=== PATIENT | female | born 1990 | race Caucasian/White ===

== ENCOUNTER 2021-01-31 13:41 | Emergency (ER) | payer OTHER, SELFPAY ==
--- NOTE | ~2021-01-31 | CT_ITS ---
EXAMINATION: CT SOFT TISSUE NECK WITHOUT CONTRAST CLINICAL INFORMATION: Throat tightness and difficulty swallowing COMPARISON: None TECHNIQUE: Helical imaging was performed in the axial plane with generation of coronal and sagittal reformatted images. This CT examination was performed using dose optimization techniques as appropriate, variously including the following: *Automated exposure control *Adjustment of mA and/or kV according to patient size (this includes techniques or standardized protocols for targeted exams where dose is matched to indication/reason for exam; i.e. extremities or head) *Use of iterative reconstruction technique DLP: 373 mGy-cm FINDINGS: No cervical adenopathy is identified. The parotid glands are homogeneous in attenuation. The submandibular glands are normal. No contour abnormality is seen within the oral cavity or pharyngeal mucosal space. There is symmetric prominence of the palatine tonsils. There is asymmetry of the left piriform sinus with potential mild straightening of the coastal thickening of the left aryepiglottic fold and piriform sinus mucosal but no focal lesion, fluid collection, or abnormal enhancement. The parapharyngeal fat is preserved. No retropharyngeal fluid collection is seen. The thyroid gland is normal. The superior mediastinum is unremarkable. The lung apices are clear. The mastoid air cells and visualized portions of the paranasal sinuses are well-aerated. The temporomandibular joints are normal. No periapical disease is identified. No osseous abnormalities are seen. The imaged portions of the brain parenchyma are unremarkable. CT/CT soft tissue neck wo con IMPRESSION: There is asymmetry of the left piriform sinus with potential mild straightening of the coastal thickening of the left aryepiglottic fold and piriform sinus mucosal but no focal lesion, fluid collection, or abnormal enhancement. If symptoms persist, consider further evaluation with direct endoscopic visualization.
[2021-01-31 13:47] VITALS: BP 122/79; PULSE 93; RESP 18; TEMP 36.8; O2SAT 98; BMI 27.4
--- NOTE | 2021-01-31 15:29 | ED_ITS ---
HPI - General Adult General Chief complaint: General Medical Stated complaint: sore throat Time Seen by Provider: 01/31/21 14:47 Source: patient and family Mode of arrival: ambulatory Limitations: no limitations History of Present Illness HPI narrative: 30 y/o female with no medical history presents to the ED with progressively worsening sore throat for the last 3 days. She states the pain has worsened and she has not been able to eat and she is drinking very minimally. Her and her family just got home from [facility] last night at midnight. The pain was so severe she went right to the ER at [facility] for evaluation. Per her report they said her exam was consistent with viral pharyngiitis. She had a negative COVID swab and was discharged with magic mouthwash with no improvement. She denies fever, chills, SOB, chest pain, N/V or abdominal pain. She reports bilateral ear pain, worse on the left with worsening throat and neck pain on the left side. Her voice is raspy but she is handling her own secretions ok. She does not recall the last time she urinated and thinks she is dehydrated. MD complaint: severe sore throat Onset (ago): day(s) (3) Location: face, mouth and neck Radiation: distal Severity: severe Severity scale (1-10): >10 Quality: aching, sharp and constant Pain Consistency: constant Relieving factors: none Exacerbating factors: eating Associated symptoms: headaches and other (ear pain/pressure) Treatments prior to arrival: NSAID Related Data Allergies Allergy/AdvReac Type Severity Reaction Status Date / Time No Known Allergies Allergy Verified 01/31/21 13:53 [No Known Allergies*] Review of Systems Review of Systems: Constitutional: No Fever, No Chills ENT/Mouth: + sore throat, No Rhinorrhea, + Swallowing Difficulty Eyes: No Eye Pain, No Swelling, No Redness Cardiovascular: No Chest Pain, No SOB Respiratory: No Cough, No Sputum, No Wheezing, No dyspnea Gastrointestinal: No Nausea, No Vomiting, No Diarrhea, No abdominal Pain Genitourinary: No Dysuria, No Urinary Frequency, No Hematuria Musculoskeletal: No joint pain, No Myalgias Skin: No Skin Lesions, No rash Neuro: No Weakness, No Numbness, No Dizziness, + Headache Heme/Lymph: No Bruising, + Lymphadenopathy PMFSH Past Medical History Medical History (Updated 01/31/21 @ 13:52 by Deidra Grace) Mononucleosis Social History Social History Advance Directives: No Advance Directives Information Provided: No Physical Exam Vital Signs: Vital Signs: Last Vital Signs Temp 98.3 F 01/31/21 13:47 Pulse 93 01/31/21 13:47 Resp 18 01/31/21 13:47 BP 122/79 01/31/21 13:47 Pulse Ox 98 01/31/21 13:47 Body Mass Index 27.4 Appearance: Alert. Oriented X3. Crying, appears in pain Eyes: Pupils equal, round and reactive to light. ENT: posterior orppharynx with marked generalized erythema, mild bilateral tonsillar swelling without exudate, uvula midline, voice is normal, handling secretions normally. dentition is normal. Neck: Normal inspection. Neck supple wtih tenderness along left anterior cervical chain with no palpable LAD. left lower mandibular tenderness. CVS: Normal heart rate and rhythm. Pulses normal. Respiratory: No respiratory distress. Breath sounds normal. Abdomen: Soft and non-tender. +BS x4 Skin: Skin warm and dry. Normal skin color. Normal skin turgor. No rashes. Extremities: No lower extremity edema. Neuro: Oriented X 3. No motor deficit. No sensory deficit. Steady gait Course Course Course Narrative: 30 y/o female presenting with severe sore throat x3 days. Unable to eat and very poor PO hydration. Exam is consistent with pharyngitis without retropharyngeal or peritonsillar abscess appreciated. Given her severe pain will get labs, hydrate and give IV abx and pain control. Will need PO trial prior to d/c. If unable to tolerate will proceed with CT scan for further assessment.
[2021-01-31] MEDS: 0.9 % Sodium Chloride 1,000 ML 999 ML IVCONT ×2 (16:00→17:25)
[2021-01-31] MEDS: Morphine Sulfate 4 MG/ML CARTRIDGE IVPUSH (16:01)
[2021-01-31] MEDS: Ketorolac Tromethamine 30 MG/ML VIAL IVPUSH ×2 (16:04→21:08)
[2021-01-31] MEDS: Clindamycin Phosphate/D5W 600 MG/50 ML PIGGYBACK 100 MG IV (16:07)
[2021-01-31 17:44] LABS: MANUAL DIFF FLAG NO
[2021-01-31 17:45] LABS: Influenza A PCR NEGATIVE (Negative); Influenza B PCR NEGATIVE (Negative); Resp Syncy Virus RNA Qual PCR NEGATIVE (Negative); SARS COV2 PCR INHOUSE NEGATIVE (Negative)
[2021-01-31 17:46] LABS: Basophils Percent Auto 0.2 % (0-2); Eosinophils Absolute Auto 0.2 X10*3/uL (0.0-0.4); Eosinophils Percent Auto 1.5 % (0-4); Hematocrit 39.6 % (37-47); Hemoglobin 12.6 g/dl (12.0-16.0); Imm Gran Abs Auto 0.04 X10*3/uL (0.00-0.03); Imm Gran Pct Auto 0.3 % (0.0-0.4); Lymphocytes Absolute Auto 1.3 X10*3/uL (1.2-4.9); Lymphocytes Percent Auto 9.2 % (20-40); Mean Corpuscular HGB Conc 31.8 g/dl (31.0-35.0); Mean Corpuscular Hemoglobin 29.2 pg (27.0-33.0); Mean Corpuscular Volume 91.9 fL (80-98); Mean Platelet Volume 9.4 fL (9.4-12.3); Monocytes Percent Auto 7.1 % (2-11); Neutrophils Absolute Auto 11.3 X10*3/uL (2.0-8.3); Neutrophils Percent Auto 81.7 % (45-73); Platelet Count 235 X10*3/uL (160-400); Red Blood Count 4.31 X10*6/uL (4.20-5.50); Red Cell Distribution Width 12.9 % (11.0-16.0); White Blood Count 13.8 X10*3/uL (4.8-10.8)
[2021-01-31 18:10] LABS: Anion Gap 16 (12-20); Blood Urea Nitrogen 13 mg/dL (9-16); C Reactive Protein 7.82 mg/dL (< or = 0.50); Calcium 8.3 mg/dL (8.4-10.2); Carbon Dioxide 20 mmol/L (22-29); Chloride 110 mmol/L (96-108); Creatinine Clr Calc Pharmacy 119.9; Estimated Glomerular Filt Rate > 60; Glucose Random 83 mg/dL (60-115); Potassium 4.7 mmol/L (3.3-5.1); Sodium 141 mmol/L (135-145)
[2021-01-31 19:30] VITALS: BP 140/73; PULSE 91; RESP 16; O2SAT 99
[2021-01-31 19:44] LABS: Glucose Urine UA NEG (NEG); Leukocyte Esterase Urine NEG (NEG); Nitrite Urine NEG (NEG); PH 6.5 (5.0-8.0); Specific Gravity - Urine >= 1.030 (1.005-1.025); Urine Blood NEG (NEG); Urine Ketones >=80 MG/DL (NEG); Urine Protein NEG (NEG-TRACE)
[2021-01-31 19:48] LABS: Appearance Urine CLEAR; Color Urine YELLOW
[2021-01-31 20:05] LABS: Monotest Negative (Negative)
== END 2021-01-31 21:15 | disposition home or self-care (01) ==
PROVIDERS: Physician Assistant; Emergency Provider Emergency Medicine; PCP Internal Medicine
DX: J02.9 Acute pharyngitis, unspecified (principal); Z20.822 Contact with and (suspected) exposure to COVID-19
CPT/HCPCS: 0241U; 36415; 70490; 80048; 81003; 85025; 86140; 86308; 87071; 87147; 87880; 96365; 96375; 96376; 99284; J1100; J1885; J2270

== ENCOUNTER 2024-01-30 09:32 | Emergency (ER) | payer OTHER, SELFPAY ==
--- NOTE | ~2024-01-30 | CT_ITS ---
EXAMINATION: CT LUMBAR SPINE WITHOUT CONTRAST CT SACRUM AND COCCYX WITHOUT CONTRAST CLINICAL INFORMATION: Low back pain, sacral pain COMPARISON: None available. TECHNIQUE: Multiple 1.5 and 2.0 mm axial images of the lumbar spine were obtained from lower T12 to sacrum and coccyx without IV contrast enhancement. Bone window and soft tissue window images were reconstructed. Coronal and Sagittal bone window images were also reconstructed from the axial image data. This CT examination was performed using dose optimization techniques as appropriate, variously including the following: *Automated exposure control *Adjustment of mA and/or kV according to patient size (this includes techniques or standardized protocols for targeted exams where dose is matched to indication/reason for exam; i.e. extremities or head) *Use of iterative reconstruction technique DLP; 449 mGy-cm FINDINGS: The visualized lumbar vertebrae are intact with normal alignment. T12/L1: Bony structures are intact with normal alignment. Intervertebral disc height is normal. Bilateral neuroforamina are patent. Bilateral apophyseal joints are intact with normal alignment. L-1/L-2: Bony structures are intact with normal alignment. Intervertebral disc height is normal. Bilateral neuroforamina are patent. Bilateral apophyseal joints are intact with normal alignment. L2/L3: Bony structures are intact with normal alignment. Intervertebral disc height is normal. Bilateral neuroforamina are patent. Bilateral apophyseal joints are intact with normal alignment. L3/L4: Bony structures are intact with normal alignment. Intervertebral disc height is normal. Bilateral neuroforamina are patent. Bilateral apophyseal joints are intact with normal alignment. L4/L5: Bony structures are intact with normal alignment. Intervertebral disc height is normal. Bilateral neuroforamina are patent. Bilateral apophyseal joints are intact with normal alignment. L5/S1: Bony structures are intact with normal alignment. Intervertebral disc height is normal. Bilateral neuroforamina are patent. Bilateral apophyseal joints are intact with normal alignment. The visualized sacrum and coccyx are intact with normal alignment. Inferior tip of the coccyx is not included in the [id number]. Bilateral sacroiliac joint spaces are patent. Sclerotic changes are seen along bilateral iliac border at the sacroiliac joints. Uterus is retroverted, containing T-shaped intrauterine contraceptive device. CT/CT sacrum IMPRESSION: 1. No acute fracture or dislocation of the lumbar spine. 2. No acute fracture or dislocation of the sacrum and coccyx. 3. Sclerotic changes are seen along bilateral iliac border at the sacroiliac joints, suggestive of degenerative sacroiliitis.
--- NOTE | ~2024-01-30 | CT_ITS ---
EXAMINATION: CT LUMBAR SPINE WITHOUT CONTRAST CT SACRUM AND COCCYX WITHOUT CONTRAST CLINICAL INFORMATION: Low back pain, sacral pain COMPARISON: None available. TECHNIQUE: Multiple 1.5 and 2.0 mm axial images of the lumbar spine were obtained from lower T12 to sacrum and coccyx without IV contrast enhancement. Bone window and soft tissue window images were reconstructed. Coronal and Sagittal bone window images were also reconstructed from the axial image data. This CT examination was performed using dose optimization techniques as appropriate, variously including the following: *Automated exposure control *Adjustment of mA and/or kV according to patient size (this includes techniques or standardized protocols for targeted exams where dose is matched to indication/reason for exam; i.e. extremities or head) *Use of iterative reconstruction technique DLP; 449 mGy-cm FINDINGS: The visualized lumbar vertebrae are intact with normal alignment. T12/L1: Bony structures are intact with normal alignment. Intervertebral disc height is normal. Bilateral neuroforamina are patent. Bilateral apophyseal joints are intact with normal alignment. L-1/L-2: Bony structures are intact with normal alignment. Intervertebral disc height is normal. Bilateral neuroforamina are patent. Bilateral apophyseal joints are intact with normal alignment. L2/L3: Bony structures are intact with normal alignment. Intervertebral disc height is normal. Bilateral neuroforamina are patent. Bilateral apophyseal joints are intact with normal alignment. L3/L4: Bony structures are intact with normal alignment. Intervertebral disc height is normal. Bilateral neuroforamina are patent. Bilateral apophyseal joints are intact with normal alignment. L4/L5: Bony structures are intact with normal alignment. Intervertebral disc height is normal. Bilateral neuroforamina are patent. Bilateral apophyseal joints are intact with normal alignment. L5/S1: Bony structures are intact with normal alignment. Intervertebral disc height is normal. Bilateral neuroforamina are patent. Bilateral apophyseal joints are intact with normal alignment. The visualized sacrum and coccyx are intact with normal alignment. Inferior tip of the coccyx is not included in the [id number]. Bilateral sacroiliac joint spaces are patent. Sclerotic changes are seen along bilateral iliac border at the sacroiliac joints. Uterus is retroverted, containing T-shaped intrauterine contraceptive device. CT/CT lumbar spine wo IV con IMPRESSION: 1. No acute fracture or dislocation of the lumbar spine. 2. No acute fracture or dislocation of the sacrum and coccyx. 3. Sclerotic changes are seen along bilateral iliac border at the sacroiliac joints, suggestive of degenerative sacroiliitis.
[2024-01-30 09:56] VITALS: BP 124/85; PULSE 76; RESP 18; TEMP 36.8; O2SAT 99; BMI 28.1
--- NOTE | 2024-01-30 10:34 | ED.BACK ---
HPI - Back Pain/Injury General Chief Complaint: Back Pain/Injury Stated Complaint: Lower back pain Time Seen by Provider: 01/30/24 10:11 Source: patient Mode of arrival: ambulatory Limitations: no limitations History of Present Illness HPI Narrative: 33-year-old female with no significant past medical history who presents emergency department with complaints of right low back pain radiating into her buttock for the past 3 weeks. She denies any falls, known trauma, overuse injury. She reports she was evaluated by a primary care provider on 01/22/2024 and given a Medrol Dosepak and muscle relaxers. She reports these medications have not improved her symptoms that she feels as if symptoms worsen. She states she has had difficulty with bending and walking and feels as if leg is ?locked up?. She denies any fever, chills, IVDU history urinary hesitancy, urinary fecal incontinence, saddle anesthesias, paresthesias, or weakness. Pertinent positives and negatives discussed in HPI MD elicited complaint: back pain Related Data Previous Rx's ?Medication ?Instructions ?Recorded amoxicillin 875 mg-potassium 1 tab PO Q12H 7 days #14 tabs 01/31/21 clavulanate 125 mg tablet (Augmentin) hydrocodone 5 mg-acetaminophen 325 1 tab PO BID PRN pain 3 days #10 01/31/21 mg tablet tabs hydrocodone 5 mg-acetaminophen 325 1 tab PO BID PRN pain 5 days #10 01/31/21 mg tablet tabs ondansetron HCl 4 mg tablet 4 mg PO Q6H PRN nausea and 01/31/21 (Zofran) vomiting #10 tabs prednisone 50 mg tablet 50 mg PO DAILY 4 days #4 tabs 01/31/21 amoxicillin 875 mg-potassium 1 tab PO BID 7 days #14 tabs 11/30/22 clavulanate 125 mg tablet ciprofloxacin 0.3 %-dexamethasone 4 drp otic (ears) BID 7 days #7.5 11/30/22 0.1 % ear drops,suspension mL diazepam 2 mg tablet 2 mg PO BID PRN muscle spasm #7 01/30/24 tabs lidocaine 5 % topical patch 1 patch topical DAILY #15 ea 01/30/24 naproxen 500 mg tablet 500 mg PO BID PRN pain #30 tabs 01/30/24 Allergies Allergy/AdvReac Type Severity Reaction Status Date / Time No Known Allergies Allergy Verified 01/30/24 09:59 [No Known Allergies*] Review of Systems Review of Systems: Yes all other systems are reviewed and are negative [facility] Past Medical History Medical History (Updated 01/30/24 @ 14:23 by Tricia Young NP) Mononucleosis Social History Social History Patient Tobacco Use Status: Never used Tobacco Advance Directives: No Advance Directives Information Provided: Yes Physical Exam Vital Signs: Vital Signs: Last Vital Signs Temp 98.8 F 01/30/24 11:32 Pulse 71 01/30/24 11:32 Resp 16 01/30/24 11:32 BP 110/78 01/30/24 11:32 Pulse Ox 99 01/30/24 11:32 O2 Del Method Room Air 01/30/24 11:32 BMI result Body Mass Index 28.1 Nursing notes and vital signs reviewed. GENERAL APPEARANCE: A&0 x 4, generally well appearing, no acute distress HENMT: Normal to inspection, atraumatic, face symmetrical. Normal external ears, nose, and oropharynx clear. EYE: PERRLA, EOM intact, structures appear normal NECK: Supple without lymphadenopathy. No stiffness or restricted ROM. CHEST: Normal to inspection HEART: Normal rate and regular rhythm, normal S1/S2, no M/R/G LUNGS: LS CTA, moving air well. Able to speak in complete sentences. No crackles, wheezes, or rhonchi auscultated ABDOMEN: Soft, nontender, nondistended. Normal bowel sounds noted BACK: No CVAT, no obvious deformity EXTREMITIES: Moving all extremities without difficulty. No cyanosis, clubbing, or edema. Normal capillary refill. NEUROLOGICAL: Alert and oriented, moving all 4 extremities with equal strength. CN not formally tested but appearing grossly intact. Observed to ambulate with normal gait. Cognition normal SKIN: Warm and dry without any lesions, rash, or visible sores PSYCH: Cooperative, normal affect, normal thought process Back/Spine/Pelvis: Back/spine/pelvis image: 1. TTP 2. TTP 3. TTP Medications Administered Discontinued Medications Generic Name Dose Route Start Last Admin Trade Name Freq PRN Reason Stop Dose Admin Ketorolac Tromethamine 15 mg 01/30/24 13:04 01/30/24 13:14 Ketorolac Tromethamine 15 Mg/Ml Vial IM 01/30/24 13:05 15 mg ONCE ONE Administration Lidocaine 1 patch 01/30/24 10:34 01/30/24 10:42 Lidocaine 4 % Patch Adh..Patch TRANSDERMA 01/30/24 10:35 1 patch ONCE ONE Administration Protocol Medical Decision Making Medical Decision Making [facility] Narrative: Old records reviewed for previous imaging, lab studies, ECGs, and notes. Patient was assessed the emergency department with no acute distress or toxicity noted. CT scan of lumbar spine and sacrum completed. I have independently interpreted the CT scan as negative for acute findings. Radiologist remarks on sclerotic changes along bilateral iliac borders at the sacroiliac joints, suggestive of degenerative sacroiliitis with no evidence of acute fractures or dislocation of the lumbar spine, sacrum, and coccyx. Patient's symptoms are consistent with these findings and naproxen, lidocaine patches, and volume since patient preferred pharmacy for further management of discomfort. Patient educated to follow up with her primary care provider in addition to orthopedics as needed with contact information provided. Patient is safe for discharge at this time with plan for [id number] Tylenol and/or NSAID such as ibuprofen or naproxen for fever/discomfort with dosing as per packaging. HPI, PE, diagnostics, and plan discussed with patient and family with no unanswered questions at this time. Strict return precautions given to return to the emergency department with new, worsening, or concerning emergent symptoms. Recommended to follow-up with there primary care provider in 24-48 hours for further treatment and management. Differential Diagnosis Differential Diagnoses: The differential diagnosis associated with the presentation includes But not limited to strain, sprain, fracture, dislocation, stenosis, radiculopathy, sciatica, sacroiliitis, sepsis, malignancy, cauda equina, epidural abscess Lab Data [facility] Lab Attestation statement: I reviewed the patient's lab results. Labs: Lab Results 01/30/24 Range/Units 11:34 Urine Test NEGATIVE (NEGATIVE) Independent Interpretation I performed an independent interpretation of an: CT Scan Interpretation: Showing no acute findings Discharge Plan Discharge Clinical Impression: Acute right-sided back pain, Sacroiliitis Patient Disposition: Home, Self-Care Instructions: Diazepam (By mouth), Sacroiliitis (ED), Back Pain (ED), Heat Pack Application (ED), Lower Back Exercises (ED) Additional Instructions: Your seen in the emergency department for concerns of right sided back pain. Your CT scans showed degenerative changes along bilateral iliac borders of the sacroiliac joints suggestive of sacroiliitis. This is inflammation in the joints where the spine meets the pelvis that can cause pain in the low back, hips, buttocks and upper thighs. Diazepam was sent to your preferred pharmacy to help with muscle spasms. You are safe for discharge at this time with plan for management of fever or discomfort with [id number] Tylenol and/or NSAID such as ibuprofen or naproxen with dosing as per packaging. Please return to the emergency department with new, worsening, or concerning emergent symptoms. Recommended to follow-up with your primary care provider in 24-48 hours for further treatment and management. Thank you for choosing [facility]. Prescriptions: New diazepam 2 mg tablet 2 mg PO BID PRN (Reason: muscle spasm) Qty: 7 0RF lidocaine 5 % adhesive patch,medicated 1 patch topical DAILY Qty: 15 0RF Rx Instructions: leave on most painful area for up to 12 hrs naproxen 500 mg tablet 500 mg PO BID PRN (Reason: pain) Qty: 30 0RF No Action hydrocodone-acetaminophen 5-325 mg tablet 1 tab PO BID PRN (Reason: pain) 3 Days Qty: 10 0RF amoxicillin-pot clavulanate [Augmentin] 875-125 mg tablet 1 tab PO Q12H 7 Days Qty: 14 0RF prednisone 50 mg tablet 50 mg PO DAILY 4 Days Qty: 4 0RF ondansetron HCl [Zofran] 4 mg tablet 4 mg PO Q6H PRN (Reason: nausea and vomiting) Qty: 10 0RF hydrocodone-acetaminophen 5-325 mg tablet 1 tab PO BID PRN (Reason: pain) 5 Days Qty: 10 0RF amoxicillin-pot clavulanate 875-125 mg tablet 1 tab PO BID 7 Days Qty: 14 0RF ciprofloxacin-dexamethasone 0.3-0.1 % drops,suspension 4 drp otic (ears) BID 7 Days Qty: 7.5 0RF Referrals: [facility] [Provider Group] Radha Clark MD [Primary Care Provider] - Stand Alone Forms: Work/School Release Interventions: ED Discharge Assessment Last Done: 01/30/24 14:48 Print Language: Turkish
[2024-01-30] MEDS: Lidocaine 4 % Patch ADH..PATCH 1 PATCH TRANSDERMA (10:42)
[2024-01-30 11:32] VITALS: BP 110/78; PULSE 71; RESP 16; TEMP 37.1; O2SAT 99
[2024-01-30 11:46] LABS: UPreg QC Valid YES; Urine Pregnancy NEGATIVE (NEGATIVE)
[2024-01-30] MEDS: Ketorolac Tromethamine 15 MG/ML VIAL IM (13:14)
[2024-01-30 14:48] VITALS: BP 120/84; PULSE 84; RESP 18; TEMP 36.6; O2SAT 100
== END 2024-01-30 14:49 | disposition home or self-care (01) ==
PROVIDERS: Nurse Practitioner Family; Emergency Provider Emergency Medicine; PCP Family Medicine
DX: M54.50 Low back pain, unspecified (principal); M46.1 Sacroiliitis, not elsewhere classified
CPT/HCPCS: 72132; 72192; 81025; 96372; 99283; 99284; J1885

== ENCOUNTER 2024-02-01 08:54 | Outpatient (AMB) | payer OTHER, SELFPAY ==
--- NOTE | 2024-02-01 08:55 | A.OFFVIS_ITS ---
Intake Visit Reasons: New Pt - right sided lower back pain Intake Note: Ghazal is a 33 year old female who presents to the office today for a new patient visit for right sided lower back pain that started 2 weeks ago with no known injury. She states it just happened out of no where and got worse. She states she has pain that travels down her lower back to her right leg. She states she has tried heat,ice, OTC medication and medication that was prescribed at the ER with no relief. Allergies No Known Allergies [No Known Allergies*] Allergy (Verified 02/01/24 08:55) Medication List - Last Reconciled 02/01/24 by Barbie Mejia MD diazepam 2 mg PO BID PRN lidocaine 5% 1 patch topical DAILY naproxen 500 mg PO BID PRN HPI Comments Details: Started the day before . Progressed gradually over the weeks. No inciting injuries. Was seen by PCP per reports, given Medrol Dosepak. Then had gone to ED 01/29, exam note indicated pain on right SI region; CT did not show acute changes but did show sacroiliitis signs; prescribed diazepam, lidocaine patch and naproxen. Lower back, then goes to right SI region down to back of thigh, but not lower than knee. When she sits a certain way, could have sensation/throb on calf. No numbness. No weakness. No bladder/bowel changes. Can't bend down due to pain. Even extension makes it worse. Denies other joint pains now. Had white spots on blanchard areas, was tested for immunologic disorder which must have been negative. Biopsy was inconclusive. Denies rash. Family history - maternal's mother had RA PFSH Medical History Mononucleosis Social History Patient Tobacco Use Status: Never used Tobacco Review of Systems Const All systems reviewed & are unremarkable except as noted in HPI and below Physical Exam Constitutional: Patient appears to be in no acute distress, well nourished and well developed. Patient was appropriately conversant and oriented. Good historian. MSK: No specific abnormalities found on inspection of the spine and all extremities. No pain with palpation over the lumbar area. Tender on right SI joint. Mildly tender right GT. Lumbar ROM was limited flexion extension due to pain. Difficulty getting up from chair. Bilateral hip, knee and ankle ROM WNL. No ligamentous laxity or crepitance. No increased effusion. Straight-leg raising test negative. FABERE test positive right. Ira tests show stiffness on right. Strength is 5/5 in all muscle groups tested. No increased tone noted. Neurological: Neurologic examination of the upper and lower extremities was nonfocal with intact sensation, muscle stretch reflexes and without focal motor deficits . Babinski was down going bilaterally. Clonus was negative. Gait is antalgic without loss of balance. Results Reviewed Results Reviewed: Ordering Physician: Tricia Young NP Date of Service: 01/30/24 Procedure(s): CT lumbar spine wo IV con Accession Number(s): [id number] cc: Radha Clark MD; Tricia Young NP~ EXAMINATION: CT LUMBAR SPINE WITHOUT CONTRAST CT SACRUM AND COCCYX WITHOUT CONTRAST CLINICAL INFORMATION: Low back pain, sacral pain COMPARISON: None available. TECHNIQUE: Multiple 1.5 and 2.0 mm axial images of the lumbar spine were obtained from lower T12 to sacrum and coccyx without IV contrast enhancement. Bone window and soft tissue window images were reconstructed. Coronal and Sagittal bone window images were also reconstructed from the axial image data. This CT examination was performed using dose optimization techniques as appropriate, variously including the following: *Automated exposure control *Adjustment of mA and/or kV according to patient size (this includes techniques or standardized protocols for targeted exams where dose is matched to indication/reason for exam; i.e. extremities or head) *Use of iterative reconstruction technique DLP; 449 mGy-cm FINDINGS: The visualized lumbar vertebrae are intact with normal alignment. T12/L1: Bony structures are intact with normal alignment. Intervertebral disc height is normal. Bilateral neuroforamina are patent. Bilateral apophyseal joints are intact with normal alignment. L-1/L-2: Bony structures are intact with normal alignment. Intervertebral disc height is normal. Bilateral neuroforamina are patent. Bilateral apophyseal joints are intact with normal alignment. L2/L3: Bony structures are intact with normal alignment. Intervertebral disc height is normal. Bilateral neuroforamina are patent. Bilateral apophyseal joints are intact with normal alignment. L3/L4: Bony structures are intact with normal alignment. Intervertebral disc height is normal. Bilateral neuroforamina are patent. Bilateral apophyseal joints are intact with normal alignment. L4/L5: Bony structures are intact with normal alignment. Intervertebral disc height is normal. Bilateral neuroforamina are patent. Bilateral apophyseal joints are intact with normal alignment. L5/S1: Bony structures are intact with normal alignment. Intervertebral disc height is normal. Bilateral neuroforamina are patent. Bilateral apophyseal joints are intact with normal alignment. The visualized sacrum and coccyx are intact with normal alignment. Inferior tip of the coccyx is not included in the [id number]. Bilateral sacroiliac joint spaces are patent. Sclerotic changes are seen along bilateral iliac border at the sacroiliac joints. Uterus is retroverted, containing T-shaped intrauterine contraceptive device. CT/CT lumbar spine wo IV con IMPRESSION: 1. No acute fracture or dislocation of the lumbar spine. 2. No acute fracture or dislocation of the sacrum and coccyx. 3. Sclerotic changes are seen along bilateral iliac border at the sacroiliac joints, suggestive of degenerative sacroiliitis. I reviewed records from the following: ER notes Assessment & Plan Assessment & Plan (1) Sacroiliac joint dysfunction of right side: Code(s): M53.3 - Sacrococcygeal disorders, not elsewhere classified Category: Medical (2) Sacroiliitis: Code(s): M46.1 - Sacroiliitis, not elsewhere classified Category: Medical Plan Right Si joint dysfunction per history and exam. Discussed which specific movements would exacerbate. Since she's had good course of oral antiinflammatories including Medrol without much relief, it would be reasonable to have injection done for right SI joint. I will have to refer her to Pain Management to be done under fluoroscopy. In the meantime, we will discontinue naproxen and take ibuprofen 600mg TID instead, take with full stomach. Discontinue Diazepam, and take flexeril 10mg qhs instead. Referral to PT which I believe would be her best course of action for terminal gauger relief. She denies other joint pains but has family history of RA. CT shows sacroiliitis. We will check for WILLIAM and RF. Assessment and plan discussed with patient, and patient was agreeable. All questions were answered thoroughly. Barbie Mejia MD, [place] Board Certified, [place] [employer] and Rehabilitation (ABPMR) Board Certified, [place] [employer] of Electrodiagnostic Medicine (ABEM) Orders: Orders Rheumatoid Factor Today M53.3 - Sacrococcygeal disorders, not elsewhere classified WILLIAM Reflex Titer and Pattern Today M53.3 - Sacrococcygeal disorders, not elsewhere classified PT Evaluation and Treatment Today M46.1 - Sacroiliitis, not elsewhere classified, M53.3 - Sacrococcygeal disorders, not elsewhere classified Referrals Pain Management Referral M53.3 - Sacrococcygeal disorders, not elsewhere classified Coding Level of Care Code New Pt Level 4 (09653) Diagnoses Sacroiliac joint dysfunction of right side M53.3 Sacroiliitis M46.1
== END 2024-02-01 09:28 | disposition home or self-care (01) ==
PROVIDERS: PCP Family Medicine; Visit Provider Physical Medicine & Rehabilitation
DX: M53.3 Sacrococcygeal disorders, not elsewhere classified (principal); M46.1 Sacroiliitis, not elsewhere classified
CPT/HCPCS: 99204

== ENCOUNTER 2024-02-01 08:54 | Outpatient (REF) | payer OTHER, SELFPAY ==
[2024-02-01 11:12] LABS: Rheumatoid Factor < 13.0 IU/mL (<15.0)
[2024-02-05 12:28] LABS: Anti Nuclear Antibody Pattern Nuclear, Speckled; Anti Nuclear Antibody Screen POSITIVE (NEGATIVE)
== END 2024-02-01 08:55 | disposition home or self-care (01) ==
LOC: HO.LAB 08:54
PROVIDERS: PCP Family Medicine; Visit Provider Physical Medicine & Rehabilitation
DX: M53.3 Sacrococcygeal disorders, not elsewhere classified (principal); M54.50 Low back pain, unspecified; M46.1 Sacroiliitis, not elsewhere classified
CPT/HCPCS: 36415; 86038; 86039; 86431

== ENCOUNTER 2024-04-23 08:37 | Outpatient (AMB) | payer OTHER, SELFPAY ==
--- NOTE | 2024-04-23 08:39 | A.OFFVIS_ITS ---
Vital Signs 04/23/24 08:45 Height 5 ft 2 in Weight 156 lb 1.396 oz BMI 28.5 BP 110/60 Blood Pressure Location Lt brachial Position Sitting Respiration 16 Pulse 85 Pulse Oximetry (%) 97 Oxygen Delivery Method Room Air Intake Visit Reasons: + WILLIAM/CM Intake Note: Patient presents for WILLIAM. Allergies No Known Allergies [No Known Allergies*] Allergy (Verified 04/23/24 08:42) Medication List - Last Reconciled 04/23/24 by Jaz Fermin MD No Known Home Meds HPI Comments Details: This is a 33-year-old female who presents for evaluation of a positive WILLIAM and sacroiliitis. In 01/2024 patient presented to the ED with abrupt onset of right buttock, right lower back pain that radiated to her right thigh. She had been treated with a Medrol Dosepak by another provider without relief. In the emergency room she was given Toradol with relief. The pain eventually improved on its own. Since then she would have intermittent episodes of right buttock pain, usually with certain movements. She denies any morning stiffness. She would have these episodes about once a week and they last about 1 hour. She also states that she has been having thumb pain, she has achiness of her hands she tries to make a fist. She gets intermittent swelling of her fingers, she feels that her ring is tight. She states that she was diagnosed with psoriasis about 10 years ago after the of her child. Was on the back of her scalp and it self-resolved without any specific treatment. Has not had any recurrent psoriasis. She also states that for the last 4-5 years she has been having episodes of abdominal pain and loose stools. This happens 2 to 3 times a day. No blood in the stool. Has not been evaluated by nylon hot wire cutter. Her mother has Crohn's disease. She also noted skin depigmentation of her shins. She had a skin biopsy and it was inconclusive. Her father has vitiligo she denies any history of DVT/PE. When she was in [place] 2 months ago she developed a skin rash on her chest that lasted a couple of days. She denies history suggestive of uveitis. 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 Female Reproductive History Menstrual Total pregnancies: 1 Full term: 1 Review of Systems Const Denies fever(s), Reports weight gain and Denies weight loss Eyes Reports no additional complaints Musc Reports back pain, Reports arthralgias, Reports joint swelling and Reports stiffness Skin/Breast Reports photosensitivity and Reports rash Physical Exam Vital Signs: Last Vital Signs Pulse 85 04/23/24 08:45 Resp 16 04/23/24 08:45 BP 110/60 04/23/24 08:45 Pulse Ox 97 04/23/24 08:45 Oxygen Delivery Method Room Air 04/23/24 08:45 BMI result Body Mass Index 28.5 Const General: cooperative, healthy appearing and comfortable Nutritional Appearance: overweight Orientation/consciousness: patient oriented x3 Limitations: no limitations HEENT Head: Yes normocephalic and Yes atraumatic Mouth: moist mucous membranes Resp Effort & Inspection: normal respiratory effort and able to speak in complete sentences Auscultation: clear to auscultation bilaterally Cardio Rate: regular rate Rhythm: regular rhythm Skin General skin exam: no rashes or lesions noted Neuro General: patient oriented x3 Extrem Other: No active synovitis No flexor tendon triggering No flexor tendon tenderness Normal range of motion of hands, wrists, elbows and shoulders without pain Negative rotator cuff provocative maneuvers and negative Speed's test bilaterall y Tiffany test 10-14.5 cm Normal range of motion of her neck Negative straight leg raise test bilaterally Negative Fabere test bilaterally No knee pain with full flexion-extension bilaterally Right foot bunion No ankle swelling or tenderness bilaterally Normal nailfold capillaroscopy Results Reviewed Results Reviewed: CT SACRUM AND COCCYX WITHOUT CONTRAST CLINICAL INFORMATION: Low back pain, sacral pain COMPARISON: None available. TECHNIQUE: Multiple 1.5 and 2.0 mm axial images of the lumbar spine were obtained from lower T12 to sacrum and coccyx without IV contrast enhancement. Bone window and soft tissue window images were reconstructed. Coronal and Sagittal bone window images were also reconstructed from the axial image data. This CT examination was performed using dose optimization techniques as appropriate, variously including the following: *Automated exposure control *Adjustment of mA and/or kV according to patient size (this includes techniques or standardized protocols for targeted exams where dose is matched to indication/reason for exam; i.e. extremities or head) *Use of iterative reconstruction technique DLP; 449 mGy-cm FINDINGS: The visualized lumbar vertebrae are intact with normal alignment. T12/L1: Bony structures are intact with normal alignment. Intervertebral disc height is normal. Bilateral neuroforamina are patent. Bilateral apophyseal joints are intact with normal alignment. L-1/L-2: Bony structures are intact with normal alignment. Intervertebral disc height is normal. Bilateral neuroforamina are patent. Bilateral apophyseal joints are intact with normal alignment. L2/L3: Bony structures are intact with normal alignment. Intervertebral disc height is normal. Bilateral neuroforamina are patent. Bilateral apophyseal joints are intact with normal alignment. L3/L4: Bony structures are intact with normal alignment. Intervertebral disc height is normal. Bilateral neuroforamina are patent. Bilateral apophyseal joints are intact with normal alignment. L4/L5: Bony structures are intact with normal alignment. Intervertebral disc height is normal. Bilateral neuroforamina are patent. Bilateral apophyseal joints are intact with normal alignment. L5/S1: Bony structures are intact with normal alignment. Intervertebral disc height is normal. Bilateral neuroforamina are patent. Bilateral apophyseal joints are intact with normal alignment. The visualized sacrum and coccyx are intact with normal alignment. Inferior tip of the coccyx is not included in the [id number]. Bilateral sacroiliac joint spaces are patent. Sclerotic changes are seen along bilateral iliac border at the sacroiliac joints. Uterus is retroverted, containing T-shaped intrauterine contraceptive device. CT/CT lumbar spine wo IV con IMPRESSION: 1. No acute fracture or dislocation of the lumbar spine. 2. No acute fracture or dislocation of the sacrum and coccyx. 3. Sclerotic changes are seen along bilateral iliac border at the sacroiliac joints, suggestive of degenerative sacroiliitis. Assessment & Plan Assessment & Plan (1) WILLIAM positive: Code(s): R76.8 - Other specified abnormal immunological findings in serum Category: Medical Plan: This is a 33-year-old female who presents for evaluation of a positive WILLIAM as well as right lower back and buttock pain, with CT scan showing degenerative sacroiliitis. Also symptoms of abdominal pain with loose stools for the last 4 years. Her mother has Crohn's disease and her father has vitiligo. She had psoriasis many years ago. I will order comprehensive serology to screen for underlying autoimmune rheumatic disease Given ongoing right buttock pain and inconclusive CT scan I would like to order bilateral SI joint MRI to evaluate for inflammatory sacroiliitis. MRI L-spine order to evaluate for signs suggestive of inflammatory back pain. Follow-up in 6 weeks or after imaging is complete Plan I spent 48 minutes reviewing patient's chart, evaluating patient, ordering diagnostic workup, counseling patient and documenting in the chart Orders: Orders Complete Blood Count Auto Diff Today M32.9 - Systemic lupus erythematosus, unspecified C Reactive Protein Today M32.9 - Systemic lupus erythematosus, unspecified Protein Electrophoresis, Serum Today M32.9 - Systemic lupus erythematosus, unspecified Complement C4 Today M32.9 - Systemic lupus erythematosus, unspecified Endomysial IgA rflx Titer Today K90.0 - Celiac disease Immunoglobulin A Today K90.0 - Celiac disease Thyroglobulin Antibodies Today E07.9 - Disorder of thyroid, unspecified MR sacroiliac joint YOHAN wo con Today M46.1 - Sacroiliitis, not elsewhere classified MR lumbar spine wo con Today M46.1 - Sacroiliitis, not elsewhere classified HLA B51 Behcet's Disease Today M35.2 - Behcet's disease Comprehensive Met. Panel Today M32.9 - Systemic lupus erythematosus, unspecifie d Angiotensin Converting Enzyme Today D86.9 - Sarcoidosis, unspecified Erythrocyte Sedimentation Rate Today M32.9 - Systemic lupus erythematosus, unspecified Hepatitis A,B,C Profile Today Z11.59 - Encounter for screening for other viral diseases Immunofixation Pnl, Serum Today M32.9 - Systemic lupus erythematosus, unspecified T Spot TB Today Z11.7 - Encounter for testing for latent tuberculosis infection Anti Extractable Nuclear Ag Today M32.9 - Systemic lupus erythematosus, unspecified Anti DNA DS Antibody Today M32.9 - Systemic lupus erythematosus, unspecified Complement C3 Today M32.9 - Systemic lupus erythematosus, unspecified DNA Double Stranded-Crithidia Today M32.9 - Systemic lupus erythematosus, unspecified Protein Creatinine Ratio, Ur Today M32.9 - Systemic lupus erythematosus, unspecified Sjogren's Antibodies Today M32.9 - Systemic lupus erythematosus, unspecified UA w Microscopic Today M32.9 - Systemic lupus erythematosus, unspecified HLA B27 Today M45.9 - Ankylosing spondylitis of unspecified sites in spine Rheumatoid Factor Today M25.50 - Pain in unspecified joint Cyclic Citrullinated Peptide Today M25.50 - Pain in unspecified joint Transglutaminase Ab IgG Today K90.0 - Celiac disease Thyroid Peroxidase Antibodies Today E07.9 - Disorder of thyroid, unspecified TSH reflex Free T4 Today E07.9 - Disorder of thyroid, unspecified Prom[facility] IBD SGI Today K52.9 - Noninfective gastroenteritis and colitis, unspecified Coding Level of Care Code New Pt Level 4 (80177) Diagnoses WILLIAM positive R76.8
[2024-04-23 08:45] VITALS: BP 110/60; PULSE 85; RESP 16; O2SAT 97; BMI 28.5
== END 2024-04-23 09:11 | disposition home or self-care (01) ==
PROVIDERS: PCP Family Medicine; Visit Provider Student in an Organized Health Care Education/Training Program
DX: R76.8 Other specified abnormal immunological findings in serum (principal)
CPT/HCPCS: 99204

== ENCOUNTER → 2024-04-23 08:37 | Outpatient (BNVA) | payer OTHER, SELFPAY | PROVIDERS: PCP Family Medicine; Visit Provider Student in an Organized Health Care Education/Training Program ==

== ENCOUNTER 2024-04-23 09:34 | Outpatient (REF) | payer OTHER, SELFPAY ==
[2024-04-23 10:18] LABS: MANUAL DIFF FLAG NO
[2024-04-23 10:21] LABS: Appearance Urine Clear; Color Urine Yellow; Glucose Urine UA Negative (Negative); Leukocyte Esterase Urine Negative (Negative); Nitrite Urine Negative (Negative); PH 8.5 (5.0-9.0); Specific Gravity - Urine 1.015 (1.005-1.025); Urine Blood Negative (Negative); Urine Ketones Negative (Negative); Urine Protein Negative (Neg-Trace)
[2024-04-23 10:25] LABS: Basophils Percent Auto 0.4 % (0-2); Eosinophils Absolute Auto 0.2 X10*3/uL (0.0-0.4); Hematocrit 42.4 % (37.0-47.0); Hemoglobin 13.8 g/dl (12.0-16.0); Imm Gran Abs Auto 0.02 X10*3/uL (0.00-0.03); Imm Gran Pct Auto 0.3 % (0.0-0.4); Lymphocytes Absolute Auto 2.1 X10*3/uL (1.2-4.9); Lymphocytes Percent Auto 27.3 % (20-40); Mean Corpuscular HGB Conc 32.5 g/dl (31.0-35.0); Mean Corpuscular Hemoglobin 29.2 pg (27.0-33.0); Mean Corpuscular Volume 89.6 fL (80.0-98.0); Mean Platelet Volume 9.5 fL (9.4-12.3); Monocytes Absolute Auto 0.5 X10*3/uL (0.1-1.2); Monocytes Percent Auto 6.5 % (2-11); Neutrophils Percent Auto 63.5 % (45-73); Platelet Count 332 X10*3/uL (160-400); Red Blood Count 4.73 X10*6/uL (4.20-5.50); White Blood Count 7.8 X10*3/uL (4.8-10.8)
[2024-04-23 10:28] LABS: Bacteria Urine None Seen (None Seen); Hyaline Casts Urine 0-2 /LPF (0-2); RBC Urine 0-2 /HPF (0-2); Squamous Epithelial Cell Urine 0-2 /HPF (0-2); WBC Urine 0-5 /HPF (0-5)
[2024-04-23 11:00] LABS: Alanine Aminotransferase 20 U/L (0-31); Albumin Level 4.6 g/dL (3.5-5.0); Alkaline Phosphatase 70 U/L (39-117); Anion Gap 13 (12-20); Aspartate Amino Transferase 16 U/L (5-31); Bilirubin Total 0.6 mg/dL (0.0-1.0); Blood Urea Nitrogen 12 mg/dL (9-16); C Reactive Protein 0.12 mg/dL (< or = 0.50); Calcium 9.8 mg/dL (8.4-10.2); Carbon Dioxide 27 mmol/L (22-29); Chloride 104 mmol/L (96-108); Estimated Glomerular Filt Rate > 60; Glucose Random 88 mg/dL (60-115); Potassium 3.7 mmol/L (3.3-5.1); Sodium 140 mmol/L (135-145); Total Protein 7.6 g/dL (6.5-8.0)
[2024-04-23 11:03] LABS: Erythrocyte Sedimentation Rate 11 MM/HR (0-20)
[2024-04-23 11:09] LABS: Creatinine Urine 66.02 mg/dL; Total Protein Urine Random < 7 mg/dL (<12)
[2024-04-23 11:15] LABS: Rheumatoid Factor < 13.0 IU/mL (<15.0)
[2024-04-23 11:17] LABS: TSH reflex Free T4 1.68 uIU/mL (0.32-4.0)
[2024-04-23 11:29] LABS: HBS Num1 6.16 mIU/mL (0-7.99); HBc Num1 0.11 S/CO (0.00-0.79); HBsAGNum1 1.21 S/CO (0.00-0.99); Hepatitis A Antibody IgM 0.15 Index (0-0.79); Hepatitis B Core Antibody Nonreactive (Nonreactive); ~HepC Num1 0.07 S/CO (0.00-0.79); ~Hepatitis A Antibody IgM Nonreactive (Nonreactive); ~Hepatitis B Surface Antibody NONREACTIVE (Nonreactive); ~Hepatitis C Antibody Nonreactive (Nonreactive)
[2024-04-23 14:38] LABS: HBsAGNum2 Reactive; HBsAGNum3 Reactive; Hepatitis B Surface Antigen Retest CNFM (Negative)
[2024-04-24 23:28] LABS: Thyroglobulin Antibodies <1 IU/mL (< or = 1); Thyroid Peroxidase Antibodies <1 IU/mL (<9)
[2024-04-25 10:59] LABS: Complement C3 156 mg/dL (83-193)
[2024-04-25 13:58] LABS: Transglutaminase Ab IgG <1.0 U/mL
[2024-04-25 14:43] LABS: Cyclic Citrullinated Peptide <16 UNITS
[2024-04-25 20:04] LABS: Anti DNA DS Antibody <1 IU/mL; Antibody to SS-A Antigen <1.0 NEG AI (<1.0 NEG); Antibody to SS-B Antigen <1.0 NEG AI (<1.0 NEG); SM/Ribonucleoprotein Ab <1.0 NEG AI (<1.0 NEG); Smith Protein <1.0 NEG AI (<1.0 NEG)
[2024-04-25 20:38] LABS: Prot Elec - Albumin 4.4 g/dL (3.8-4.8); Prot Elec - Alpha1 0.3 g/dL (0.2-0.3); Prot Elec - Alpha2 0.7 g/dL (0.5-0.9); Prot Elec - Beta 1 0.5 g/dL (0.4-0.6); Prot Elec - Beta 2 0.5 g/dL (0.2-0.5); Prot Elec - Gamma 0.9 g/dL (0.8-1.7); Prot Elec - Total Protein 7.2 g/dL (6.1-8.1)
[2024-04-25 21:43] LABS: TS Negative Control Passed; TS Panel A 0; TS Panel B 0; TS Positive Control Passed; TSpotTB Negative (Negative)
[2024-04-26 10:33] LABS: IgA 397 mg/dL (47-310); IgG 1005 mg/dL (600-1640); IgM 181 mg/dL (50-300)
[2024-04-26 23:59] LABS: HLA B27 Negative (Negative)
[2024-04-30 18:38] LABS: HBsAG NON-REACTIVE
[2024-05-01 13:07] LABS: Endomysial IgA Antibody Negative (Negative)
[2024-05-01 15:23] LABS: DNAds, Crithidia Antibody Negative (Negative)
[2024-05-09 21:59] LABS: Angiotensin Converting Enzyme 25 U/L (9-67)
== END 2024-04-23 09:35 | disposition home or self-care (01) ==
LOC: HO.10HDL 09:34
PROVIDERS: Visit Provider Student in an Organized Health Care Education/Training Program
DX: M32.9 Systemic lupus erythematosus, unspecified (principal); Z11.59 Encounter for screening for other viral diseases; M45.9 Ankylosing spondylitis of unspecified sites in spine; E07.9 Disorder of thyroid, unspecified; D86.9 Sarcoidosis, unspecified; Z11.7 Encounter for testing for latent tuberculosis infection; K90.0 Celiac disease; M25.50 Pain in unspecified joint; K52.9 Noninfective gastroenteritis and colitis, unspecified
CPT/HCPCS: 36415; 80053; 81001; 81405; 81479; 82164; 82397; 82570; 82784; 83520; 84156; 84165; 84443; 85025; 85652; 86140; 86160; 86200; 86225; 86231; 86235; 86255; 86334; 86364; 86376; 86431; 86481; 86704; 86706; 86709; 86800; 86803; 86812; 87340; 88346; 88350

== ENCOUNTER 2024-07-01 09:37 | Outpatient (REF) | payer OTHER, SELFPAY ==
--- NOTE | ~2024-07-01 | MR_ITS ---
EXAMINATION: MR LUMBAR SPINE WITHOUT CONTRAST CLINICAL INFORMATION: Low back pain. COMPARISON: No priors. Correlated to CT lumbar spine dated January 30, 2024. TECHNIQUE: MRI of the lumbar spine was obtained using routine sequences without contrast. FINDINGS: MRI has been submitted for interpretation on August 05, 2024. Last rib-bearing vertebra labeled T12. No bone marrow STIR signal abnormality. Disc desiccation, L5-S1. Grade 1 retrolisthesis, L5-S1 and to a lesser extent L4-5. Conus medullaris ends at superior endplate L1 with normal signal. T11-12: No compression upon elements. T12-L1: No compression upon elements. No disc herniation. L1-2: No disc herniation. No compression upon neural elements. L2-3: No disc herniation. No compression upon neural elements. L3-4: Broad-based disc bulging. No compression upon neural elements. L4-5: Broad-based disc bulging. Facet joint hypertrophy. Hypertrophy of the ligamentum flavum. Left neuroforamina narrowing. No compression upon neural elements. L5-S1: Right subarticular and central disc herniation with cephalad migration beneath the posterior longitudinal ligament, abutting the right S1 nerve root on its lateral recess. No prevertebral compartment hematoma, mass or fluid collection. MR/MR lumbar spine wo con IMPRESSION: Central and right subarticular extruded disc, right L5-S1 abutting likely encroaching right S1 nerve root. Electronically signed by: Corby Ng MD 08/05/2024 10:22 AM EDT
--- NOTE | ~2024-07-01 | MR_ITS ---
Examination: MRI sacroiliac joint without IV contrast. CLINICAL INFORMATION: Low back pain, sacral pain. COMPARISON: No priors. Correlated to CT sacrum dated January 30, 2024. TECHNIQUE: Multiplanar, multisequence MRI sacroiliac joints without IV contrast. FINDINGS: No bone marrow STIR signal abnormality. Bone marrow inhomogeneity. No presacral soft tissue mass or fluid collections. Right subarticular disc herniation L5-S1 encroaching right S1 nerve root. Uterus is in retroversion flexion position. Small amount of free fluid in the cul-de-sac. MR/MR sacroiliac joint YOHAN wo con IMPRESSION: Right subarticular disc herniation L5-S1 encroaching right S1 root. No acute fracture Electronically signed by: Corby Ng MD 08/05/2024 10:29 AM EDT
== END 2024-07-01 09:38 | disposition home or self-care (01) ==
LOC: HO.MRI 09:37
PROVIDERS: PCP Family Medicine; Visit Provider Student in an Organized Health Care Education/Training Program
DX: M46.1 Sacroiliitis, not elsewhere classified (principal)
CPT/HCPCS: 72148; 72195

== ENCOUNTER → 2024-07-01 09:37 | Outpatient (BNV) | payer OTHER, SELFPAY | PROVIDERS: PCP Family Medicine; Visit Provider Radiology Diagnostic Radiology | DX: M54.50 Low back pain, unspecified (principal) | CPT/HCPCS: 72148; 72195 ==

== ENCOUNTER 2024-08-19 12:49 | Outpatient (AMB) | payer OTHER, SELFPAY ==
--- NOTE | 2024-08-19 13:01 | A.SPINEOV_ITS ---
Intake Visit Reasons: disc displacement Intake Note: Ms. Tamez is here today c/o low back pain. [employer] Worker Required: No Allergies No Known Allergies [No Known Allergies*] Allergy (Verified 08/19/24 13:01) Assessment & Plan Assessment & Plan (1) Herniation of intervertebral disc between L5 and S1: Code(s): M51.27 - Other intervertebral disc displacement, lumbosacral region Category: Medical Plan Dear DR Fermin, Thank you for referring Mrs Tamez to our office today. She is a very nice 33-year-old female presents to the office today for evaluation of symptoms that she had earlier this year in January. She awoke 1 day with a severe shooting pain going down the back of her leg. It lasted a few weeks. She ended up in the emergency room. She was on a number of different medications like anti- inflammatories and muscle relaxers. Ultimately it just went away 1 day and she has been pain-free since that time. She ultimately did end up undergoing some imaging and came in her today review that. PMH: Otherwise healthy Social hx: Does not smoke, drink use any recreational drugs Medications: None Allergies: None Physical exam: Awake alert oriented strength, reflexes and gait are normal Imaging review: She is a lumbar MRI showing what looks like some mild degeneration of L5-S1, there is some asymmetric to the right bulging of this disc. No nerve compression. She has a CT of her pelvis showing some evidence of early sacroiliitis. Impression: 33-year-old female who had what sounds like a herniated disc earlier this year, probably the L5-S1 where we see some early degeneration. As is typical with 90+% of disc herniations, it resolved on its own with some gentle conservative treatment. She has been pain-free since January. I showed the patient her MRI, we talked about the fact that it is normal for disc herniations to resolve themselves and that if it happens again she should pursue the same course of conservative treatment. She has no specific restrictions. She does not require any surgery. Her pelvic CT did show some sacroiliitis, but her symptoms do not seem consistent with that. That is more of a chronic low back pain situation which she does not have. I would be happy to see her back down the road if something changes. Thank you for allowing us to care for your patient. The total time spent with this visit with this patient was 45 minutes reviewing history, physical exam, lumbar imaging review, and implementation of treatment plan or further diagnostic testing Roshan Rojas MD,PhD [facility] Coding Level of Care Code New Pt Level 4 (10511) Diagnoses Herniation of intervertebral disc between L5 and S1 M51.27
== END 2024-08-19 13:25 | disposition home or self-care (01) ==
PROVIDERS: PCP Family Medicine; Referring Provider Student in an Organized Health Care Education/Training Program; Visit Provider Physician Assistant
DX: M51.27 Other intervertebral disc displacement, lumbosacral region (principal)
CPT/HCPCS: 99204

== ENCOUNTER → 2024-08-19 12:49 | Outpatient (BNVA) | payer OTHER, SELFPAY | PROVIDERS: PCP Family Medicine; Referring Provider Student in an Organized Health Care Education/Training Program; Visit Provider Physician Assistant ==

== ENCOUNTER 2025-03-27 15:13 | Emergency (ER) | payer OTHER, SELFPAY ==
[2025-03-27 15:18] VITALS: BP 127/43; PULSE 65; RESP 18; TEMP 36.6; O2SAT 97; BMI 28.3
--- NOTE | 2025-03-27 15:18 | ED.GENADULT ---
HPI - General Adult General Chief complaint: Headache Stated complaint: headache nausea, swollen hands & feet Time Seen by Provider: 03/27/25 20:49 Source: patient Mode of arrival: ambulatory Limitations: no limitations History of Present Illness ED Provider: HPI narrative: Patient no significant past medical history noticed right-sided headache for last 3 days with nausea headache and dull aching partially relieved by Tylenol or Motrin no past medical history of migraines Related Data Previous Rx's ?Medication ?Instructions ?Recorded rmqxulfyuq-kptszokgqqgub-[id number] 1 tab PO Q6H PRN haeadace #20 tabs 03/27/25 50 mg-325 mg-40 mg tablet Allergies Allergy/AdvReac Type Severity Reaction Status Date / Time No Known Allergies (No Known Allergy Verified 03/27/25 15:20 Allergies*) Review of Systems Review of Systems: Yes all other systems are reviewed and are negative [facility] Past Medical History Medical History Psoriasis Mononucleosis Family History Family History Mother Crohn's disease Father Vitiligo Social History Social History Household Members: Family Housing: House Alcohol intake: current Alcohol intake frequency: a few times a month Comment: Occasionall Patient Tobacco Use Status: Never used Tobacco Advance Directives: No Advance Directives Information Provided: Yes Do you have a plan to hurt others: No Plan Current occupational status: employed 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 Oriented X3. No acute distress. Eyes: PERRLA, No Nystagmus ENT: Pharynx normal. Oral Mucosa moist temporal artery nontender Neck: Normal inspection. Neck supple. CVS: Normal heart rate and rhythm. Pulses normal. Respiratory: No respiratory distress. Equal air entry bilateral, no wheezing/rales/rhonchi Abdomen: Soft and nontender. Bowel sounds are present, no mass palpable, no CVA tenderness Skin: Skin warm and dry. Normal skin color. Normal skin turgor. Extremities: No lower extremity edema. No calf tenderness Neuro: Oriented X 3. No motor deficit. No sensory deficit.No cerebellar signs , cranial nerves II-XII intact Course Course Course Narrative: This is a Rapid Medical Examination (RME) performed by Lan Schneider PA-C in triage. Full HPI, ROS, assessment and treatment plan per primary provider in the Main ED. Hx: 34 yo F here w/ headache + nausea without vomiting x4 days. headache localized behind b/l eyes. trialed motrin without improvement. on BC, does not get menstrual period. also reports swelling to b/l hands/ feet. PE/vitals: well appearing. Plan: labs, viral swabs, UA Medications Administered Discontinued Medications Generic Name Dose Route Start Last Admin Trade Name Freq PRN Reason Stop Dose Admin Acetaminophen/Butalbital/Caffeine 1 tab 03/27/25 22:27 03/27/25 22:46 Butalb/Acetamin/Caff 50/325/40 Tablet PO 03/27/25 22:28 1 tab ONCE ONE Administration Ketorolac Tromethamine 60 mg 03/27/25 22:27 03/27/25 22:40 Ketorolac Tromethamine 60 Mg/2 Ml Vial IM 03/27/25 22:28 60 mg ONCE ONE Administration Ondansetron HCl 4 mg 03/27/25 20:55 03/27/25 21:50 Ondansetron Odt 4 Mg Tab.Rapdis TRANSLINGU 03/27/25 20:56 4 mg ONCE ONE Administration Sumatriptan Succinate 6 mg 03/27/25 20:55 03/27/25 21:51 Sumatriptan Succinate 6 Mg/0.5 Ml Vial SUBCUT 03/27/25 20:56 6 mg ONCE ONE Administration Medical Decision Making Medical Decision Making [facility] Narrative: Patient with headache likely migraine was given Imitrex she did not like the response responded to Fioricet and Toradol will discharge patient home on Fioricet Lab Data [facility] Lab Attestation statement: I reviewed the patient's lab results. 03/27/25 16:17 03/27/25 16:19 Labs: Lab Results 03/27/25 03/27/25 03/27/25 Range/Units 16:13 16:17 16:19 WBC 10.0 (4.8-10.8) X10*3/uL RBC 4.66 (4.20-5.50) X10*6/uL Hgb 13.4 (12.0-16.0) g/dl Hct 41.3 (37.0-47.0) % MCV 88.6 (80.0-98.0) fL MCH 28.8 (27.0-33.0) pg MCHC 32.4 (31.0-35.0) g/dl RDW 13.0 (11.0-16.0) % Plt Count 329 (160-400) X10*3/uL MPV 9.0 L (9.4-12.3) fL Immature Gran % (Auto) 0.2 (0.0-0.4) % Neut % (Auto) 64.3 (45-73) % Lymph % (Auto) 26.0 (20-40) % Grady % (Auto) 7.0 (2-11) % Eos % (Auto) 2.1 (0-4) % Baso % (Auto) 0.4 (0-2) % Lymph # (Auto) 2.6 (1.2-4.9) X10*3/uL Grady # (Auto) 0.7 (0.1-1.2) X10*3/uL Eos # (Auto) 0.2 (0.0-0.4) X10*3/uL Baso # (Auto) 0.0 (0.0-0.2) X10*3/uL Abs Immat Gran (auto) 0.02 (0.00-0.03) X10*3/uL Absolute Neuts (auto) 6.4 (2.0-8.3) x10*3/uL Absolute Nucleated RBC 0.000 (0.0-0.012) X10*3/uL Nucleated RBC % (auto) 0.0 (0.0-0.2) /100WBC Sodium 141 (135-145) mmol/L Potassium 4.3 (3.3-5.1) mmol/L Chloride 105 (96-108) mmol/L Carbon Dioxide 28 (22-29) mmol/L Anion Gap 12 (12-20) BUN 13 (9-16) mg/dL Creatinine 0.69 (0.5-1.4) mg/dL Estim Creat Clear Calc 105.5 Estimated GFR > 60 Random Glucose 100 (60-115) mg/dL Calcium 9.8 (8.4-10.2) mg/dL Magnesium 2.0 (1.6-2.6) mg/dL Total Bilirubin 0.3 (0.0-1.0) mg/dL AST 21 (5-31) U/L ALT 27 (0-31) U/L Alkaline Phosphatase 68 (39-117) U/L Total Protein 7.4 (6.5-8.0) g/dL Albumin 4.8 (3.5-5.0) g/dL Lipase 26 (8-78) U/L Beta HCG, Quant < 2 mIU/mL Urine Color Urine Appearance Urine pH (5.0-9.0) Ur Specific [place] (1.005-1.025) Urine Protein (Neg-Trace) mg/dL Urine Glucose (UA) (Negative) mg/dL Urine Ketones (Negative) mg/dL Urine Blood (Negative) Urine Nitrite (Negative) Ur Leukocyte Esterase (Negative) Urine Test (NEGATIVE) Influenza Type A (PCR) NEGATIVE (Negative) Influenza Type B (PCR) NEGATIVE (Negative) RSV RNA Qual (PCR) NEGATIVE (Negative) SARS-CoV-2 RNA (RT-PCR) NEGATIVE (Negative) 03/27/25 Range/Units 20:03 WBC (4.8-10.8) X10*3/uL RBC (4.20-5.50) X10*6/uL Hgb (12.0-16.0) g/dl Hct (37.0-47.0) % MCV (80.0-98.0) fL MCH (27.0-33.0) pg MCHC (31.0-35.0) g/dl RDW (11.0-16.0) % Plt Count (160-400) X10*3/uL MPV (9.4-12.3) fL Immature Gran % (Auto) (0.0-0.4) % Neut % (Auto) (45-73) % Lymph % (Auto) (20-40) % Grady % (Auto) (2-11) % Eos % (Auto) (0-4) % Baso % (Auto) (0-2) % Lymph # (Auto) (1.2-4.9) X10*3/uL Grady # (Auto) (0.1-1.2) X10*3/uL Eos # (Auto) (0.0-0.4) X10*3/uL Baso # (Auto) (0.0-0.2) X10*3/uL Abs Immat Gran (auto) (0.00-0.03) X10*3/uL Absolute Neuts (auto) (2.0-8.3) x10*3/uL Absolute Nucleated RBC (0.0-0.012) X10*3/uL Nucleated RBC % (auto) (0.0-0.2) /100WBC Sodium (135-145) mmol/L Potassium (3.3-5.1) mmol/L Chloride (96-108) mmol/L Carbon Dioxide (22-29) mmol/L Anion Gap (12-20) BUN (9-16) mg/dL Creatinine (0.5-1.4) mg/dL Estim Creat Clear Calc Estimated GFR Random Glucose (60-115) mg/dL Calcium (8.4-10.2) mg/dL Magnesium (1.6-2.6) mg/dL Total Bilirubin (0.0-1.0) mg/dL AST (5-31) U/L ALT (0-31) U/L Alkaline Phosphatase (39-117) U/L Total Protein (6.5-8.0) g/dL Albumin (3.5-5.0) g/dL Lipase (8-78) U/L Beta HCG, Quant mIU/mL Urine Color Yellow Urine Appearance Clear Urine pH 5.5 (5.0-9.0) Ur Specific [place] 1.025 (1.005-1.025) Urine Protein Negative (Neg-Trace) mg/dL Urine Glucose (UA) Negative (Negative) mg/dL Urine Ketones Trace (Negative) mg/dL Urine Blood Negative (Negative) Urine Nitrite Negative (Negative) Ur Leukocyte Esterase Negative (Negative) Urine Test NEGATIVE (NEGATIVE) Influenza Type A (PCR) (Negative) Influenza Type B (PCR) (Negative) RSV RNA Qual (PCR) (Negative) SARS-CoV-2 RNA (RT-PCR) (Negative) Discharge Plan Discharge Clinical Impression: Migraine Patient Disposition: Home, Self-Care Instructions: Migraine Headache (ED) Additional Instructions: Likely your headache is from complex migraine Fioricet 1 tablet every 8 hours as needed for headaches Drink plenty of fluids as advised Follow with the PCP if not better Prescriptions: New mzakquvvjb-svrrrptqiyluc-zamm 50-325-40 mg tablet 1 tab PO Q6H PRN (Reason: haeadace) Qty: 20 0RF Stand Alone Forms: Work/School Release Interventions: ED Discharge Assessment Last Done: 03/27/25 23:28 Discharge Date/Time: 03/27/25 23:30 Print Language: Azeri
[2025-03-27 16:22] LABS: MANUAL DIFF FLAG NO
[2025-03-27 16:23] LABS: Basophils Percent Auto 0.4 % (0-2); Eosinophils Absolute Auto 0.2 X10*3/uL (0.0-0.4); Eosinophils Percent Auto 2.1 % (0-4); Hematocrit 41.3 % (37.0-47.0); Hemoglobin 13.4 g/dl (12.0-16.0); Imm Gran Abs Auto 0.02 X10*3/uL (0.00-0.03); Imm Gran Pct Auto 0.2 % (0.0-0.4); Lymphocytes Absolute Auto 2.6 X10*3/uL (1.2-4.9); Mean Corpuscular HGB Conc 32.4 g/dl (31.0-35.0); Mean Corpuscular Hemoglobin 28.8 pg (27.0-33.0); Mean Corpuscular Volume 88.6 fL (80.0-98.0); Monocytes Absolute Auto 0.7 X10*3/uL (0.1-1.2); Neutrophils Absolute Auto 6.4 x10*3/uL (2.0-8.3); Neutrophils Percent Auto 64.3 % (45-73); Platelet Count 329 X10*3/uL (160-400); Red Blood Count 4.66 X10*6/uL (4.20-5.50)
[2025-03-27 16:39] LABS: Alanine Aminotransferase 27 U/L (0-31); Albumin Level 4.8 g/dL (3.5-5.0); Alkaline Phosphatase 68 U/L (39-117); Anion Gap 12 (12-20); Aspartate Amino Transferase 21 U/L (5-31); Bilirubin Total 0.3 mg/dL (0.0-1.0); Blood Urea Nitrogen 13 mg/dL (9-16); Calcium 9.8 mg/dL (8.4-10.2); Carbon Dioxide 28 mmol/L (22-29); Chloride 105 mmol/L (96-108); Creatinine Clr Calc Pharmacy 105.5; Estimated Glomerular Filt Rate > 60; Glucose Random 100 mg/dL (60-115); Lipase 26 U/L (8-78); Potassium 4.3 mmol/L (3.3-5.1); Sodium 141 mmol/L (135-145); Total Protein 7.4 g/dL (6.5-8.0)
[2025-03-27 17:02] LABS: Influenza A PCR NEGATIVE (Negative); Influenza B PCR NEGATIVE (Negative); Resp Syncy Virus RNA Qual PCR NEGATIVE (Negative); SARS COV2 PCR INHOUSE NEGATIVE (Negative)
[2025-03-27 20:00] VITALS: BP 128/86; PULSE 63; RESP 17; TEMP 37; O2SAT 100
[2025-03-27 20:09] LABS: HCG Quantitative < 2 mIU/mL
[2025-03-27 20:20] LABS: Appearance Urine Clear; Color Urine Yellow; Glucose Urine UA Negative (Negative); Leukocyte Esterase Urine Negative (Negative); Nitrite Urine Negative (Negative); PH 5.5 (5.0-9.0); Specific Gravity - Urine 1.025 (1.005-1.025); Urine Blood Negative (Negative); Urine Ketones Trace mg/dL (Negative); Urine Protein Negative (Neg-Trace)
[2025-03-27 20:26] LABS: UPreg QC Valid YES; Urine Pregnancy NEGATIVE (NEGATIVE)
[2025-03-27] MEDS: Ondansetron ODT 4 MG TAB.RAPDIS TRANSLINGU (21:50)
[2025-03-27] MEDS: SUMAtriptan succinate 6 MG/0.5 ML VIAL SUBCUT (21:51)
[2025-03-27] MEDS: Ketorolac Tromethamine 60 MG/2 ML VIAL IM (22:40)
[2025-03-27] MEDS: Butalb/Acetamin/Caff 50/325/40 TABLET 1 TAB PO (22:46)
[2025-03-27 23:01] VITALS: BP 120/77; PULSE 63; RESP 17; TEMP 36.8; O2SAT 99
[2025-03-27 23:28] VITALS: BP 120/77; PULSE 63; RESP 17; TEMP 36.8; O2SAT 99
== END 2025-03-27 23:30 | disposition home or self-care (01) ==
PROVIDERS: Physician Assistant Medical; Emergency Provider Internal Medicine; PCP Internal Medicine Nephrology
DX: G43.909 Migraine, unspecified, not intractable, without status migrainosus (principal); R11.0 Nausea; R60.0 Localized edema; R10.2 Pelvic and perineal pain; Z03.818 Encounter for observation for suspected exposure to other biological agents ruled out
CPT/HCPCS: 0241U; 36415; 80053; 81003; 81025; 83690; 83735; 84702; 85025; 96372; 99283; 99284; J1885; J3030